=== PATIENT | male | born 1935 | race Caucasian/White ===

== ENCOUNTER 2020-09-13 11:15 | Day surgery (SDC) | payer MEDICARE ==
[~2020-09-13] VITALS: Ht 180.3 cm; Wt 85.6 kg
[2020-09-13] VITALS (9 sets, daily range): BP systolic 151–177; BP diastolic 81–109; PULSE 71–88; TEMP 98.2
[2020-09-13 12:01] LABS: HEMATOCRIT 41.1 % (42.0-52.0); HEMOGLOBIN 13.4 g/dl (13.5-18.0); MEAN CELL VOLUME 91 fl (80.0-100.0); MEAN CORPUSCULAR HEMOGLOBIN 30 pg (27.0-31.0); MEAN CORPUSCULAR HGB CONC 33 g/dl (33.0-37.0); MEAN PLATELET VOLUME 9.4 fl (7.4-10.4); PLATELET COUNT 199 K/mm3 (130-400); RED BLOOD COUNT 4.51 M/mm3 (4.20-5.60); REDCELL DISTRIBUTION WIDTH-CV 14.6 % (11.5-14.5)
[2020-09-13] MEDS ORDERED: TOPROL XL100 MG PO (12:05)
[2020-09-13] MEDS ORDERED: PRINIVIL40 MG PO (12:06)
[2020-09-13] MEDS ORDERED: IMDUR 30MG30 MG/TAB PO (12:07)
[2020-09-13] MEDS ORDERED: PROSCAR 5MG5 MG PO (12:08)
[2020-09-13] MEDS ORDERED: PLETAL50 MG PO (12:08)
[2020-09-13] MEDS ORDERED: ASPIRIN E.C. 8181 MG PO (12:09)
[2020-09-13 12:10] LABS: INR 1.1 (0.8-3.0); PROTHROMBIN TIME 12.8 SECONDS (9.7-12.8)
[2020-09-13 12:11] LABS: CALCIUM 9.6 mg/dL (8.4-10.2)
[2020-09-13 12:12] LABS: PARTIAL THROMBOPLASTIN TIME 33.9 SECONDS (26.0-37.0)
[2020-09-13 12:13] LABS: POTASSIUM 4.3 mmol/L (3.4-5.0)
--- NOTE | 2020-09-13 19:00 | NUR ---
Pt has done well during his recovery. Pt returned to [facility] from [facility] at 1600. Pt was able to eat some dinner, and had no problems with his TR band. TR band was deflated without incident at 1800, site dressed wtih bandaid, 2x2 and coban, cms remained intact distal. I reviewed dc/rx and fu instructions with pt and daughter. both verbalized understanding. IV was dc'd wtih cath intact, dressing was applied. Pt was ambulatory around nurses station and to bathroom, gait steady. pt escorted to exit via wheelchair.
== END 2020-09-13 20:20 | disposition home or self-care (01) ==
LOC: COL.CAR 11:15
PROVIDERS: Internal Medicine Interventional Cardiology
DX: I25.10 Atherosclerotic heart disease of native coronary artery without angina pectoris (principal); I73.9 Peripheral vascular disease, unspecified; I87.2 Venous insufficiency (chronic) (peripheral); Z95.820 Peripheral vascular angioplasty status with implants and grafts; Z20.822 Contact with and (suspected) exposure to COVID-19; Z79.899 Other long term (current) drug therapy; Z79.82 Long term (current) use of aspirin
CPT/HCPCS: C1769; J1644; J2250; J3010